=== PATIENT | female | born 1985 | race Hispanic/Latino ===

== ENCOUNTER 2022-10-11 22:05 | Day surgery (SDC) | payer OTHER ==
[2022-10-11 22:31] VITALS: BMI 27.6
== END 2022-10-12 00:30 | disposition home or self-care (01) ==
LOC: CSHLD/OP 22:05
PROVIDERS: ATTEND Family Medicine
DX: O47.1 False labor at or after 37 completed weeks of gestation (principal); O24.419 Gestational diabetes mellitus in pregnancy, unspecified control; Z3A.37 37 weeks gestation of pregnancy

== ENCOUNTER 2022-10-19 11:53 | Inpatient (IN) | payer OTHER ==
[2022-10-19] MEDS ORDERED: Diphenoxylate HCl/Atropine Tablet PO PRN (12:31)
[2022-10-19] MEDS ORDERED: Ibuprofen 800 MG TAB PO PRN (12:31)
[2022-10-19] MEDS ORDERED: Methylergonovine 0.2 MG/ML VIAL IM PRN (12:31)
[2022-10-19] MEDS ORDERED: fentaNYL 50 mcg/mL 1 mL Vial SLOW IVP PRN (12:31)
[2022-10-19] MEDS ORDERED: HYDROcodone/Acetaminophen 5/325 mg Tablet PO PRN ×2 (12:31→20:29)
[2022-10-19] MEDS ORDERED: Misoprostol 200 MCG TAB PR PRN (12:31)
[2022-10-19] MEDS ORDERED: hydrALAZINE 20 MG/ML VIAL SLOW IVP PRN ×2 (12:31→20:29)
[2022-10-19] MEDS ORDERED: Carboprost 250 MCG/ML AMP IM PRN (12:31)
[2022-10-19] MEDS ORDERED: Lidocaine 1% (PF) 30 ML VIAL SC PRN (12:31)
[2022-10-19] MEDS ORDERED: Tranexamic Acid 1,000 MG/10 ML VIAL IVP PRN (12:31)
[2022-10-19] MEDS ORDERED: Acetaminophen 500 MG TAB PO PRN (12:31)
[2022-10-19] MEDS ORDERED: Promethazine HCl 25 MG/ML VIAL IM PRN ×2 (12:31→14:35)
[2022-10-19] MEDS ORDERED: Ondansetron PF 4 MG/2 ML Vial IVP PRN ×3 (12:31→20:29)
[2022-10-19] MEDS ORDERED: Oxytocin 30 units/NS 500 ML 500 ML IV SCH ×3 (12:45)
[2022-10-19] MEDS ORDERED: Lactated Ringer's 1,000 ML IV SCH (12:45)
[2022-10-19] MEDS ORDERED: Bupivacaine 0.25% HCL 30 ML VIAL ONE (13:00)
[2022-10-19 13:11] LABS: Hematocrit 31.6 % (34.9-44.5); Hemoglobin 9.8 g/dL (12.0-15.5); Mean Corpuscular Hemoglobin 24.2 pg (27.0-33.0); Mean Platelet Volume 11.2 fl (7.4-10.4); Platelet Count 218 10x3/uL (150-450); RBC Distribution Width 15.9 % (11.5-14.5); Red Blood Cell (RBC) Count 4.05 10x6/uL (3.90-5.03); White Blood Cell (WBC) Count 6.4 10x3/uL (3.5-10.5)
[2022-10-19 13:31] VITALS: BMI 28.0
[2022-10-19] MEDS ORDERED: fentaNYL/Ropivacaine Epidural 100 ML ONE (13:36)
[2022-10-19 13:41] LABS: HBSAg Index 0.16 S/CO (0-0.99); Hep B Surf Ag - L&D Non-Reactive S/CO (NonReactive)
[2022-10-19 13:43] LABS: Syphilis Antibody Nonreactive (Nonreactive); Syphilis Antibody Index 0.04 S/CO (<1.00 Non-Reactive)
[2022-10-19] MEDS ORDERED: ePHEDrine Sulfate 50 MG/10 ML VIAL SLOW IVP PRN (14:35)
[2022-10-19] MEDS ORDERED: Lactated Ringer's 500 ML IV PRN (14:35)
[2022-10-19] MEDS ORDERED: Moisturizing Cream (Eucerin) 113 GM JAR TOP PRN (14:35)
[2022-10-19] MEDS ORDERED: Acetaminophen 325 MG TAB PO PRN (14:35)
[2022-10-19] MEDS ORDERED: diphenhydrAMINE 50 MG/ML VIAL IVP PRN (14:35)
[2022-10-19] MEDS ORDERED: Naloxone HCl 0.4 mg/ml Vial IVP PRN ×2 (14:35)
[2022-10-19] MEDS ORDERED: Communication Order-Pharmacy FS SCH (14:45)
[2022-10-19] MEDS ORDERED: fentaNYL 2 mcg/Ropivacaine 0.2% Epidural 100 ML CADD EPIDURAL SCH (14:45)
[2022-10-19 20:22] LABS: HIV (1/2) Antibody/Antigen Non-Reactive (NonReactive); HIV 1/2 INDEX 0.06 S/CO (<1.00)
[2022-10-19] MEDS ORDERED: Bisacodyl 10 MG SUPP PR PRN (20:29)
[2022-10-19] MEDS ORDERED: Benzocaine-Menthol 82.5 ML CAN TOP PRN (20:29)
[2022-10-19] MEDS ORDERED: Milk Of Magnesia 30 ML UDCUP PO PRN (20:29)
[2022-10-19] MEDS ORDERED: diphenhydrAMINE 25 MG CAP PO PRN (20:29)
[2022-10-19] MEDS ORDERED: Boostrix 0.5 ML (Tdap) VIAL (>/=7 yrs of age) IM ONE (20:29)
[2022-10-19] MEDS ORDERED: Lanolin Ointment 7 GM TUBE TOP PRN (20:29)
[2022-10-20] MEDS: Docusate 100 MG CAP PO SCH ×3 (05:28→21:40)
[2022-10-20] MEDS: Ibuprofen 800 MG TAB PO SCH ×4 (05:29→21:40)
[2022-10-20] MEDS: Prenatal Vitamin 1 TAB PO SCH (09:39)
[2022-10-20] MEDS: Ferrous Sulfate 325 MG TAB PO SCH ×2 (09:39→18:22)
[2022-10-21] MEDS: Ibuprofen 800 MG TAB PO SCH ×2 (05:31→13:29)
[2022-10-21 07:49] VITALS: BP 119/66; TEMP 98.1
[2022-10-21] MEDS: Docusate 100 MG CAP PO SCH (09:33)
[2022-10-21] MEDS: Ferrous Sulfate 325 MG TAB PO SCH (09:33)
[2022-10-21] MEDS: Prenatal Vitamin 1 TAB PO SCH (09:33)
== END 2022-10-21 17:20 | disposition home or self-care (01) | DRG 807 ==
LOC: CSHLD 11:53 → CSHPP 21:00
PROVIDERS: ADMIT Family Medicine; ATTEND Family Medicine
PROC: 10E0XZZ Delivery of Products of Conception, External Approach (ICD-10-PCS; principal; 2022-10-19)
PROC: 10907ZC Drainage of Amniotic Fluid, Therapeutic from Products of Conception, Via Natural or Artificial Opening (ICD-10-PCS; 2022-10-19)
PROC: 0HQ9XZZ Repair Perineum Skin, External Approach (ICD-10-PCS; 2022-10-19)
DX: O24.420 Gestational diabetes mellitus in childbirth, diet controlled (principal); Z37.0 Single live birth; Z3A.38 38 weeks gestation of pregnancy; O70.0 First degree perineal laceration during delivery; O69.81X0 Labor and delivery complicated by cord around neck, without compression, not applicable or unspecified
CPT/HCPCS: 51702; 85027; 86780; 86850; 86900; 86901; 87340; 87389; J2590; S0020